=== PATIENT | male | born 1990 | race Caucasian/White ===

== ENCOUNTER 2017-11-22 14:15 | Emergency (ER) | payer OTHER, BC ==
--- NOTE | 2017-11-22 14:29 | EDM.PDOC ---
ED HPI GENERAL MEDICAL PROBLEM - General Chief Complaint: Back Pain or Injury Stated Complaint: SHOULDER AND BACK PAIN Time Seen by Provider: 11/22/17 14:19 - History of Present Illness INITIAL COMMENTS - FREE TEXT/NARRATIVE: HISTORY AND PHYSICAL: History of present illness: Patient 27-year-old white male presents with a concern status post fall approximately 4 feet onto his left shoulder he complains of left shoulder and back discomfort there is no numbness no weakness no head or neck pain or trauma no incontinence or retention of bowel or bladder no other concern Review of systems: As per history of present illness and below otherwise all systems reviewed and negative. Past medical history: As per history of present illness and as reviewed below otherwise noncontributory. Surgical history: As per history of present illness and as reviewed below otherwise noncontributory. Social history: No reported history of drug or alcohol abuse. Family history: As per history of present illness and as reviewed below otherwise noncontributory. Physical exam: HEENT: Atraumatic, normocephalic, pupils reactive, negative for conjunctival pallor or scleral icterus, mucous membranes moist, throat clear, neck supple, nontender, trachea midline. Lungs: Clear to auscultation, breath sounds equal bilaterally, chest nontender. Heart: S1S2, regular, negative for clicks, rubs, or JVD. Abdomen: Soft, nondistended, nontender. Negative for masses or hepatosplenomegaly. Negative for costovertebral tenderness. Pelvis: Stable nontender. Genitourinary: Deferred. Rectal: Deferred. Extremities: Left shoulder has no deformity or some tenderness that is nonlocalizing is limited range of motion secondary to pain CMS neurovascular is unremarkable. Neuro: Awake, alert, oriented. Cranial nerves II through XII unremarkable. Cerebellum unremarkable. Motor and sensory unremarkable throughout. Exam nonfocal. Back is without vertebral body point tenderness patient able stand on his toes back on his heels deep tendon reflexes motor and sensory are normal Diagnostics: Chest x-ray left shoulder fracture Therapeutics: Sling Impression: 1 observation status post fall #2 acute left shoulder injury #3 back contusion Definitive disposition and diagnosis as appropriate pending reevaluation and review of above. ED ROS GENERAL - Review of Systems Review Of Systems: ROS reveals no pertinent complaints other than HPI. ED EXAM, GENERAL - Physical Exam Exam: See Below (See dictation) Course - Orders/Labs/Meds Orders: Active Orders 24 hr Category Date Time Status Chest 2V [CR] Stat Exams 11/22/17 14:27 Ordered Shoulder Comp Lt [CR] Stat Exams 11/22/17 14:27 Ordered Departure - Departure Time of Disposition: 14:28 Disposition: Home, Self-Care 01 Condition: Good Clinical Impression: Shoulder injury, Contusion - Discharge Information Referrals: Verónica Kennedy DO [Primary Care Provider] - Additional Instructions: The following information is given to patients seen in the emergency department who are being discharged to home. This information is to outline your options for follow-up care. We provide all patients seen in our emergency department with a follow-up referral. The need for follow-up, as well as the timing and circumstances, are variable depending upon the specifics of your emergency department visit. If you don't have a primary care physician on staff, we will provide you with a referral. We always advise you to contact your personal physician following an emergency department visit to inform them of the circumstance of the visit and for follow-up with them and/or the need for any referrals to a consulting specialist. The emergency department will also refer you to a specialist when appropriate. This referral assures that you have the opportunity for followup care with a specialist. All of these measure are taken in an effort to provide you with optimal care, which includes your followup. Under all circumstances we always encourage you to contact your private physician who remains a resource for coordinating your care. When calling for followup care, please make the office aware that this follow-up is from your recent emergency room visit. If for any reason you are refused follow-up, please contact the [facility] emergency department at and asked to speak to the emergency department charge nurse. [facility] - Orth[facility] Clinic Professional Building [address] [place] [address], [address] [place] [address] Ultram as prescribed Sling as directed follow-up orthopedic clinic as needed as discussed return as needed as discussed[] - My Orders Last 24 Hours: My Active Orders 11/22/17 14:27 Chest 2V [CR] Stat Shoulder Comp Lt [CR] Stat - Assessment/Plan Last 24 Hours: My Active Orders 11/22/17 14:27 Chest 2V [CR] Stat Shoulder Comp Lt [CR] Stat
--- NOTE | 2017-11-22 15:33 | CR ---
EXAMINATION: Two-view chest (PA and Lateral views). HISTORY: Shortness of breath. FINDINGS: The trachea is midline. The cardiomediastinal silhouette is within normal limits. No pulmonary infilt rates, effusions or pneumothorax. Osseous structures appear unremarkable. IMPRESSION: No acute cardiopulmonary process.
--- NOTE | 2017-11-22 15:35 | CR ---
EXAMINATION: Left shoulder HISTORY: Pain COMPARISON: None TECHNIQUE: 3 views FINDINGS/IMPRESSION: There is no acute osseous abnormality, dislocation, or fracture. Bone mineraliza tion and joint spaces appear normal.
--- NOTE | 2017-11-22 15:37 | CR ---
EXAMINATION: Lumbar spine HISTORY: Pain COMPARISON: None TECHNIQUE: AP and lateral views FINDINGS: The lumbar spinal alignment is normal. The vertebral body heights and disc spaces appear we ll-maintained. There is no fracture or acute osseous abnormality. Bone mineralization is normal. The SI joints are symmetric. IMPRESSION: 1. Grossly unremarkable lumbar spine.
== END 2017-11-22 16:03 | disposition home or self-care (01) ==
LOC: MW.ED 14:15
DX: S30.0XXA Contusion of lower back and pelvis, initial encounter (principal); S49.92XA Unspecified injury of left shoulder and upper arm, initial encounter; W19.XXXA Unspecified fall, initial encounter
CPT/HCPCS: 71046; 71046-26; 72100; 72100-26; 73030-26-LT; 73030-LT; 99283

== ENCOUNTER 2018-08-17 14:55 | Emergency (ER) | payer BC, OTHER ==
--- NOTE | 2018-08-17 15:10 | EDM.PDOC ---
ED HPI GENERAL MEDICAL PROBLEM - General Chief Complaint: General Stated Complaint: TOOTH INFECTION Time Seen by Provider: 08/17/18 15:02 Source of Information: Reports: Patient History Limitations: Reports: No Limitations - History of Present Illness INITIAL COMMENTS - FREE TEXT/NARRATIVE: HISTORY AND PHYSICAL: History of present illness: Patient is a 28-year-old male who presents to the emergency room with concerns of dental pain with possible infection. He states he has had a chip to his bottom tooth, #24 for several months. While on vacation he noticed redness, tenderness and pain to the base of that tooth. He denies any fever, chills, chest pain, shortness of breath or cough. Denies any GI or symptoms. He is able to eat and drink appropriately. Voices no other concerns or complaints today. Review of systems: As per history of present illness and below otherwise all systems reviewed and negative. Past medical history: As per history of present illness and as reviewed below otherwise noncontributory. Surgical history: As per history of present illness and as reviewed below otherwise noncontributory. Social history: See social history for further information Family history: As per history of present illness and as reviewed below otherwise noncontributory. Physical exam: General: Well-developed and well-nourished 28-year-old male. Alert and oriented. Nontoxic appearing and in no acute distress. HEENT: Atraumatic, normocephalic, pupils equal and reactive bilaterally, negative for conjunctival pallor or scleral icterus, mucous membranes moist, patient does have a chip to the tooth #24, no nerve root exposure. The base of that gum line is erythematous and tender with palpation. TMs normal bilaterally , throat clear, neck supple, nontender, trachea midline. No drooling or trismus noted. No meningeal signs. No hot potato voice noted. Lungs: Clear to auscultation, breath sounds equal bilaterally, chest nontender. Heart: S1S2, regular rate and rhythm without overt murmur Abdomen: Soft, nondistended, nontender. Negative for masses or hepatosplenomegaly. Negative for costovertebral tenderness. Pelvis: Stable nontender. Genitourinary: Deferred. Rectal: Deferred. Skin: Intact, warm, dry. No lesions or rashes noted. Extremities: Atraumatic, negative for cords or calf pain. Neurovascular unremarkable. Neuro: Awake, alert, oriented. Cranial nerves II through XII unremarkable. Cerebellum unremarkable. Motor and sensory unremarkable throughout. Exam nonfocal. Notes: We discussed the need for appropriate follow-up with the dentist for definitive care and management. Supportive care measures were reviewed and discussed. Voices understanding and is agreeable to plan of care. Denies any further questions or concerns at this time. Diagnostics: None Therapeutics: Tooth Balls Prescription: Clindamycin TID x 7 days Tramadol (#15) Impression: Dental Abscess Plan: 1. Please take the antibiotic as prescribed. 2. Tylenol and/or ibuprofen as needed for pain management. Tramdol for moderate to severe pain. This medication may cause drowsiness, so do not take while driving or needing to be functioning outside the house. "Tooth Balls" have been given to you; apply along the gumline every 2-3 hours as needed. Do not swallow these; external use only. 3. Follow-up with a dentist for definitive care. Return to the ED as needed and as discussed. Definitive disposition and diagnosis as appropriate pending reevaluation and review of above. Oral/Mouth Pain Score (Numeric/FACES): 8 - Related Data Allergies Allergy/AdvReac Type Severity Reaction Status Date / Time No Known Allergies Allergy Verified 08/17/18 15:04 Home Meds: Home Meds . [No Known Home Meds] 11/22/17 [History] Past Medical History - Past Health History Medical/Surgical History: Denies Medical/Surgical History Social & Family History - Family History Family Medical History: Noncontributory ED ROS GENERAL - Review of Systems Review Of Systems: ROS reveals no pertinent complaints other than HPI. ED EXAM, GENERAL - Physical Exam Exam: See Below (See dictation) Course - Vital Signs Last Recorded V/S: Last Vital Signs Temp 98.9 F 08/17/18 15:07 Pulse 68 08/17/18 15:07 Resp 17 08/17/18 15:07 BP 164/93 H 08/17/18 15:07 Pulse Ox 97 08/17/18 15:07 - Orders/Labs/Meds Meds: Medications Discontinued Medications Generic Name Dose Route Start Last Admin Trade Name Freq PRN Reason Stop Dose Admin Benzocaine 2 each 08/17/18 15:16 Hurricaine One 20% MUCMEM 08/17/18 15:17 ONETIME ONE Lidocaine HCl 15 ml 08/17/18 15:16 Xylocaine 2% Viscous PO 08/17/18 15:17 ONETIME ONE Departure - Departure Time of Disposition: 15:20 Disposition: Home, Self-Care 01 Clinical Impression: Dental abscess - Discharge Information Instructions: Dental Abscess, [id number] Referrals: PCP,Unknown [Primary Care Provider] - Forms: ED Department Discharge Additional Instructions: The following information is given to patients seen in the emergency department who are being discharged to home. This information is to outline your options for follow-up care. We provide all patients seen in our emergency department with a follow-up referral. The need for follow-up, as well as the timing and circumstances, are variable depending upon the specifics of your emergency department visit. If you don't have a primary care physician on staff, we will provide you with a referral. We always advise you to contact your personal physician following an emergency department visit to inform them of the circumstance of the visit and for follow-up with them and/or the need for any referrals to a consulting specialist. The emergency department will also refer you to a specialist when appropriate. This referral assures that you have the opportunity for follow-up care with a specialist. All of these measure are taken in an effort to provide you with optimal care, which includes your follow-up. Under all circumstances we always encourage you to contact your private physician who remains a resource for coordinating your care. When calling for follow-up care, please make the office aware that this follow-up is from your recent emergency room visit. If for any reason you are refused follow-up, please contact the [facility] Emergency Department at and asked to speak to the emergency department charge nurse. [facility] [address] [place] [address] [id number] [address] [id number] 1. Please take the antibiotic as prescribed. 2. Tylenol and/or ibuprofen as needed for pain management. Tramdol for moderate to severe pain. This medication may cause drowsiness, so do not take while driving or needing to be functioning outside the house. "Tooth Balls" have been given to you; apply along the gumline every 2-3 hours as needed. Do not swallow these; external use only. 3. Follow-up with a dentist for definitive care. Return to the ED as needed and as discussed.
[2018-08-17] MEDS ORDERED: Lidocaine 2% Viscous Solution 15 ML Cup PO ONE (15:16)
[2018-08-17] MEDS ORDERED: Benzocaine 20% Topical Spray UD MUCMEM ONE (15:16)
== END 2018-08-17 15:30 | disposition home or self-care (01) ==
LOC: MW.ED 14:55
DX: K04.7 Periapical abscess without sinus (principal)
CPT/HCPCS: 99282; A9270